=== PATIENT | female | born 1940 | race Caucasian/White ===

== ENCOUNTER 2021-10-04 13:33 | Day surgery (SDC) | payer MEDICARE ==
[2021-09-30 10:09] LABS: APPEARANCE,URINE Clear (CLEAR); BILIRUBIN,URINE Negative (NEGATIVE); COLOR,URINE Yellow (YELLOW); GLUCOSE, URINE (UA) Negative (NEGATIVE); KETONES,URINE Negative (NEGATIVE); LEUKOCYTE ESTERASE ,URINE Moderate (NEGATIVE); NITRATE,URINE Negative (NEGATIVE); OCCULT BLOOD,URINE Negative (NEGATIVE); PH,URINE 6.5 (5.0-8.0); PROTEIN,URINE Negative (NEGATIVE); UROBILINOGEN,URINE 0.2 mg/dL (0.2-1.0)
[2021-09-30 10:18] LABS: BASOPHILS % (AUTO) 1.1 % (0.0-5.0); EOSINOPHILS % (AUTO) 2.4 % (0.0-8.0); HEMATOCRIT 34.4 % (36-48); MEAN CORPUSCULAR HEMOGLOBIN 25.4 pg (27.0-33.0); MEAN CORPUSCULAR HGB CONC 31.1 g/dL (32.0-36.0); MEAN CORPUSCULAR VOLUME 81.5 fL (79-99); NEUTROPHILS % (AUTO) 52.1 % (40.0-77.0); PLATELET COUNT (AUTO) 395 K/uL (130-400); RED BLOOD CELL COUNT(AUTO) 4.22 MIL/uL (4.00-5.50); RED CELL DISTRIBUTION WIDTH 15.4 % (11.0-15.5); WHITE BLOOD COUNT (AUTO) 8.2 K/uL (4.8-10.8)
[2021-09-30 10:28] LABS: INR 1.05 (0.85-1.15); PROTHROMBIN TIME 11.4 SEC (9.6-11.6)
[2021-09-30 10:29] LABS: POTASSIUM 4.1 mmol/L (3.5-5.1)
[2021-09-30 10:40] LABS: BACTERIA,URINE Rare /HPF (None Seen); RBC,URINE 0-1 /HPF (0-1)
[2021-10-03 11:01] VITALS: BP 146/64
[~2021-10-04] VITALS: Ht 154.9 cm; Wt 69.4 kg
[2021-10-04] VITALS (8 sets, daily range): BP systolic 113–140; BP diastolic 45–61
[~2021-10-04 13:33] MED LIST: 0.9% NACL 500ML IV.SOLN 500 ML IV SCH; ASPI-1197 PO; CA C1TAB95 PO; DiphenhydrAMINE HCL 50 MG/ML VIAL IVP SCH; FURO20TA4 PO; LOSA100T58 PO; MIRA50TA PO; PARO40TA72 PO; PRAV40TA3 PO; SOLU-MEDROL 125MG VIAL IVP SCH; VERA240T95 PO
[2021-10-04] MEDS ORDERED: 0.9%NACL 1000ML 1,000 ML IV ONE (13:37)
[2021-10-04] MEDS ORDERED: HEPARIN 10,000 UNIT/10ML (1,000 UNIT/ML) VIAL ONE (14:53)
[2021-10-04] MEDS ORDERED: NITROGLYCERIN 50MG VIAL ONE (14:54)
[2021-10-04] MEDS ORDERED: IOHEXOL 350 MG/ML 100ML INFUS..BTL IV ONE ×2 (14:54→15:00)
[2021-10-04] MEDS ORDERED: FENTANYL CITRATE PF 50 MCG/1 ML 2ML VIAL ONE (14:54)
[2021-10-04] MEDS ORDERED: LIDOCAINE HCL 400MG/20ML VIAL ONE (14:54)
[2021-10-04] MEDS ORDERED: MIDAZOLAM HCL 1 MG/ML 2ML VIAL ONE (14:54)
[2021-10-04] MEDS ORDERED: IOHEXOL-350 50ML VIAL IV ONE (14:54)
== END 2021-10-04 18:59 | disposition home or self-care (01) ==
LOC: DAH 13:33
PROVIDERS: ATTEND Internal Medicine Cardiovascular Disease
DX: R07.89 Other chest pain (principal); R06.02 Shortness of breath; I10 Essential (primary) hypertension; I25.2 Old myocardial infarction; I49.1 Atrial premature depolarization; Z79.01 Long term (current) use of anticoagulants; Z79.82 Long term (current) use of aspirin; Z72.89 Other problems related to lifestyle; Z98.890 Other specified postprocedural states; Z79.899 Other long term (current) drug therapy
CPT/HCPCS: 36415; 71045; 76700; 80048; 81001; 85025; 85610; 85730; 87088; 93005; 93458; A4215; A4216; A4221; A4222; A4223 ×3; A4606; A4663; C1760; C1894; J1200; J1644; J2250; J2930; J3010; J3490 ×2; J7030; Q9965; Q9967; 99156; 99157